=== PATIENT | male | born 1980 | race Two or more races ===

== ENCOUNTER → 2016-11-24 | Outpatient (REF) | payer BC ==
[2016-11-24 20:10] LABS: ALBUMIN 4.2 GM/DL (3.2-5.2); ALBUMIN/GLOBULIN RATIO 1.31 (1.00-1.93); ALKALINE PHOSPHATASE 55 U/L (45-117); ALT/SGPT 45 U/L (12-78); ANION GAP 9 MEQ/L (8-16); AST/SGOT 26 U/L (15-37); BILIRUBIN,TOTAL 0.4 MG/DL (0.2-1.0); BLOOD UREA NITROGEN 17 MG/DL (7-18); CALCIUM LEVEL 8.8 MG/DL (8.5-10.1); CARBON DIOXIDE LEVEL 31 MEQ/L (21-32); CHLORIDE LEVEL 102 MEQ/L (98-107); CREATININE FOR GFR 1.05 MG/DL (0.70-1.30); GLOMERULAR FILTRATION RATE > 60.0 (>60); GLUCOSE, FASTING 114 MG/DL (70-105); POTASSIUM SERUM 4.4 MEQ/L (3.5-5.1); SODIUM LEVEL 142 MEQ/L (136-145); TOTAL PROTEIN 7.4 GM/DL (6.4-8.2)
[2016-11-24 20:15] LABS: BASO % 0.3 % (0.0-1.0); EOS # 0.1 K/mm3 (0.0-0.50); EOS % 2.1 % (0.0-3.0); LARGE UNSTAINED CELL # 0.2 K/mm3 (0.0-0.4); LARGE UNSTAINED CELL % 3.3 % (0.0-4.0); LYMPH # 1.5 K/mm3 (1.5-4.5); LYMPH % 29.1 % (24.0-44.0); MEAN CORPUSCULAR HEMOGLOBIN 31.3 pg (27.0-33.0); MEAN CORPUSCULAR HGB CONC 32.8 g/dl (32.0-36.5); MEAN CORPUSCULAR VOLUME 95.3 fl (80.0-96.0); MONO # 0.3 K/mm3 (0.0-0.8); MONO % 6.4 % (0.0-5.0); NEUTROPHILS % 58.8 % (36.0-66.0); PLATELET COUNT, AUTOMATED 273 k/mm3 (150-450); RED CELL DISTRIBUTION WIDTH 11.9 % (11.5-14.5)
== END ==
LOC: M SFHCADAM 11:37
PROVIDERS: ATTEND Family Medicine
DX: I10 Essential (primary) hypertension (principal)

== ENCOUNTER → 2016-12-15 | Outpatient (REF) | payer BC | LOC: M SFHCADAM 12:14 | PROVIDERS: ATTEND Family Medicine | DX: I10 Essential (primary) hypertension (principal) ==

== ENCOUNTER → 2017-01-05 | Outpatient (REF) | payer BC | LOC: M SFHCADAM 11:35 | PROVIDERS: ATTEND Family Medicine | DX: R73.01 Impaired fasting glucose (principal) ==

== ENCOUNTER → 2017-09-28 | Outpatient (CLI) | payer BC | LOC: M RAD 09:27 | DX: N50.9 Disorder of male genital organs, unspecified (principal); N43.3 Hydrocele, unspecified | CPT/HCPCS: 76870 ==

== ENCOUNTER → 2017-11-14 | Outpatient (REF) | payer BC ==
[2017-11-14 13:14] LABS: BASO % 0.4 % (0.0-1.0); EOS # 0.1 10^3/uL (0.0-0.50); EOS % 1.3 % (0.0-3.0); HEMATOCRIT 48.4 % (42.0-52.0); HEMOGLOBIN 16.3 g/dl (14.0-18.0); IMMATURE GRANULOCYTE % 0.2 % (0-3.0); LYMPH # 1.5 10^3/uL (1.5-4.5); LYMPH % 27.5 % (24.0-44.0); MEAN CORPUSCULAR HEMOGLOBIN 31.7 pg (27.0-33.0); MEAN CORPUSCULAR HGB CONC 33.7 g/dl (32.0-36.5); MEAN CORPUSCULAR VOLUME 94.2 fl (80.0-96.0); MONO # 0.4 10^3/uL (0.0-0.8); MONO % 8.3 % (0.0-5.0); NEUTROPHILS # 3.3 10^3/uL (1.8-7.7); NEUTROPHILS % 62.3 % (36.0-66.0); PLATELET COUNT, AUTOMATED 310 10^3/uL (150-450); RED BLOOD COUNT 5.14 10^6/uL (4.30-6.10); RED CELL DISTRIBUTION WIDTH 12.1 % (11.5-14.5); WHITE BLOOD COUNT 5.3 10^3/uL (4.0-10.0)
[2017-11-14 13:43] LABS: ALBUMIN 4.4 GM/DL (3.2-5.2); ALBUMIN/GLOBULIN RATIO 1.33 (1.00-1.93); ALKALINE PHOSPHATASE 65 U/L (45-117); ALT/SGPT 47 U/L (12-78); ANION GAP 5 MEQ/L (8-16); AST/SGOT 29 U/L (7-37); BILIRUBIN,TOTAL 0.5 MG/DL (0.2-1.0); BLOOD UREA NITROGEN 15 MG/DL (7-18); CALCIUM LEVEL 9.6 MG/DL (8.5-10.1); CARBON DIOXIDE LEVEL 33 MEQ/L (21-32); CHLORIDE LEVEL 104 MEQ/L (98-107); CREATININE FOR GFR 1.11 MG/DL (0.70-1.30); GLOMERULAR FILTRATION RATE > 60.0 (>60); GLUCOSE, FASTING 120 MG/DL (70-100); POTASSIUM SERUM 4.8 MEQ/L (3.5-5.1); SODIUM LEVEL 142 MEQ/L (136-145); TOTAL PROTEIN 7.7 GM/DL (6.4-8.2)
[2017-11-14 14:08] LABS: ESTIMATED AVERAGE GLUCOSE 128 MG/DL (60-110); HEMOGLOBIN A1c 6.1 %
== END ==
LOC: M SFHCADAM 10:35
DX: K52.9 Noninfective gastroenteritis and colitis, unspecified (principal); I10 Essential (primary) hypertension; R73.01 Impaired fasting glucose
CPT/HCPCS: 80053

== ENCOUNTER → 2018-02-01 | Outpatient (CLI) | payer BC | LOC: M ADAMS 16:33 | DX: M25.521 Pain in right elbow (principal) | CPT/HCPCS: 73080 ==

== ENCOUNTER → 2018-02-15 | Outpatient (REF) | payer BC ==
[2018-02-15 20:20] LABS: APPEARANCE, BODY FLUID TURBID
[2018-02-15 20:21] LABS: CRYSTALS, BODY FLUID NONE SEEN (NONE SEEN); SOURCE, BODY FLUID CRYSTALS RT ELBOW
[2018-02-15 20:23] LABS: BF MONONUCLEAR CELL % 81.6 % (0-0); BF POLYMORPHONUCLEAR CELL % 18.4 % (0-0); RBC BODY FLUID 44 10^3/uL (<2); WBC BODY FLUID 234 /uL (0-10)
[2018-02-15 20:25] LABS: BF DIFF IF INDICATED? YES (NO)
== END ==
LOC: M SFHCADAM 19:03
DX: M70.21 Olecranon bursitis, right elbow (principal)
CPT/HCPCS: 89051

== ENCOUNTER → 2020-06-11 | Outpatient (CLI) | payer BC ==
--- NOTE | 2020-06-18 10:41 | REP ---
LEFT FOOT SERIES: 4-VIEWS HISTORY: Left foot pain. FINDINGS: Four views of the left foot demonstrate overall normal mineralization. No evidence of fracture or subluxation is seen. No erosive change or other evidence to suggest arthropathy. IMPRESSION: Negative radiographs of the left foot. NATALEE
== END ==
LOC: M ADAMS 08:29
PROVIDERS: ATTEND Physician Assistant
DX: M79.672 Pain in left foot (principal)

== ENCOUNTER 2020-10-19 12:36 | Emergency (ER) | payer OTHER, BC ==
[~2020-10-19] VITALS: Ht 193 cm; Wt 104.5 kg
[2020-10-19] MEDS ORDERED: SIMV20TA22 PO (13:04)
[2020-10-19] MEDS ORDERED: ATEN50TA2 PO (13:04)
[2020-10-19] MEDS ORDERED: AMPH1CAP16 PO (13:04)
[2020-10-19] MEDS ORDERED: LISI30TA4 PO (13:04)
--- OUTSIDE RECORDS SUMMARY | 2020-10-19 13:27 | CCD ---
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 Active 233421963 Problem Chronic gout without tophus, unspecified cause, unspecified site [id number].[id number] Active 103817413 Problem Essential hypertension I10 Active 15647046 Problem Adult ADHD F90.9 Active 367997675 Problem Attention deficit hyperactivity disorder (ADHD), unspecified ADHD type F90.9 Active 858970509 Problem Acute gout involving toe of right foot, unspecified cause M10.9 Active 612343657 ALLERGIES No Known Allergies ENCOUNTERS from 1979 to 2020-09-28 Encounter Location Date Provider Diagnosis [facility] [address] [place] [address] Sep, Swapna Daren-Tartell IMMUNIZATIONS No Information SOCIAL HISTORY Tobacco Use: Social History Observation Description Date Details (start date - stop date) Never Smoker Sex Assigned At : Social History Observation Description Sex Assigned At Unknown Education: Question Answer Notes Level of Education: Not Finished College Audit Question Answer Notes Total Score: 10 Interpretation: Simple Advice Sexual Hx: Question Answer Notes Had sex in the last 12 months (vaginal, oral, or anal)? Yes Have you ever had an STD? No with Women only Use protection? No Drug and Alcohol Question Answer Notes Total Score: 0 Interpretation: No problems reported Alcohol Screening: Question Answer Notes Did you have a drink containing alcohol in the past year? Ye s Points 8 Interpretation Positive How often did you have six or more drinks on one occas ion in the past year? Weekly (3 points) How many drinks did you have on a typica l day when you were drinking in the past year? 3 or 4 (1 point) How often did you have a drink containing alcohol in t he past year? Four or more times a week (4 points) BMI Care Goal Follow-Up Question Answer Notes Above Normal BMI Follow-Up Giving encouragement to exercise Tobacco Use: Question Answer Notes Are you a: never smoker REASON FOR REFERRAL No Information VITAL SIGNS No information MEDICATIONS Medication SIG (Take, Route, Frequency, Duration) Notes Start Da te End Date Status Colchicine 0.6 mg one tab orally every 12 hours prn pain for 5 d ay(s) Dec, Active May Have - medical majuana orally 3-4 times as needed Active Atenolol 50 MG 1 tablet Orally Once a day for 30 Days Active Adderall 20 MG 1 tablet Orally twice daily MDD:2 for 30 day(s) Sep, Active Simvastatin 20 MG 1 tablet in the evening Orally Once a day for 30 Da ys Active Lisinopril 30 MG 1 tab Orally once daily for 30 Days Active PROCEDURES No Information RESULTS No Results REASON FOR VISIT atenolol, lisinopril MEDICAL (GENERAL) HISTORY Type Description Date Medical History HTN Medical History hyperlipidemia Medical History gout Medical History ADHD Medical History chronic low back pain Medical History states dx with intermittent explosive di sorder Medical History testicular US shows R hydrocele (09/2017) Medical History last tetanus shot approx 2002 Surgical History back surgery 2011 Goals Section No Information Health Concerns No Information MEDICAL EQUIPMENT No Information MENTAL STATUS No Information FUNCTIONAL STATUS No Information ASSESSMENTS No Information PLAN OF TREATMENT Medication Medication Name Sig Start Date Stop Date Colchicine 0.6 mg one tab orally every 12 hours prn pain f or 5 day(s) Dec, Simvastatin 20 MG 1 tablet in the evening Orally Once a day for 30 Days Lisinopril 30 MG 1 tab Orally once daily for 30 Days Adderall 20 MG 1 tablet Orally twice daily MDD:2 for 30 day(s) Sep, Atenolol 50 MG 1 tablet Orally Once a day for 30 Days Insurance Providers Payer Name Payer Address Payer Phone Insured Name Patient Relati onship to Insured Coverage Start Date Coverage End Date [facility] [phone] [facility] [phone] [place] self
--- OUTSIDE RECORDS SUMMARY | 2020-10-19 13:28 | CCD ---
Author Author [facility] Organization [facility] Address Unknown Phone Unavailable Care Team Providers Care Affiliate Marketing Manager Name Role Phone WalterKaylee PA Unavailable Unavailable Walter, Kaylee Crawford PA Unavailable Unavailable Walter, Kaylee Moonn PA Unavailable Unavailable Walter, Kaylee Irenelyn PA Unavailable Unavailable Walter, Kaylee Yvette PA Unavailable Unavailable Walter, Kaylee Yvette PA Unavailable Unavailable Walter, Kaylee Yvette PA Unavailable Unavailable Walter, Kaylee Yvette PA Unavailable Unavailable Walter, Kaylee Yvette PA Unavailable Unavailable Walter, Kaylee Yvette PA Unavailable Unavailable Re-disclosure Warning The records that you are about to access may contain information from federally-assisted alcohol or drug abuse programs. If such information is present, then the following federally mandated warning applies: This information has been disclosed to you from records protected by federal confidentiality rules (42 CFR part 2). The federal rules prohibit you from making any further disclosure of this information unless further disclosure is expressly permitted by the written consent of the person to whom it pertains or as otherwise permitted by 42 CFR part 2. A general authorization for the release of medical or other information is NOT sufficient for this purpose. The Federal rules restrict any use of the information to criminally investigate or prosecute any alcohol or drug abuse patient.The records that you are about to access may contain highly sensitive health information, the redisclosure of which is protected by Article 27-F of the [place] State Public Health law. If you continue you may have access to information: Regarding HIV / AIDS; Provided by facilities licensed or operated by the [facility] of Mental Health; or Provided by the [facility] Office for People With Developmental Disabilities. If such information is present, then the following [facility] mandated warning applies: This information has been disclosed to you from confidential records which are protected by state law. State law prohibits you from making any further disclosure of this information without the specific written consent of the person to whom it pertains, or as otherwise permitted by law. Any unauthorized further disclosure in violation of state law may result in a fine or residential sentence or both. A general authorization for the release of medical or other information is NOT sufficient authorization for further disc losure. Family History Family Member Name Family Member Gender Family Member Status Date o f Status Description Data Source(s) Unknown Unknown Problem MEDENT ([facility]) Encounters Encounter Providers Location Date Indications Data Source(s ) Unknown [address] [facility] [address] 09/27/2020 12:00:00 AM EST [facility]1 ([facility]) Unknown [address] [facility] [address] 09/27/2020 12:00:00 AM EST [facility]CW1 ([facility]) Unknown [address] [facility] [address] 08/25/2020 12:00:00 AM EST eCW1 ([facility]) Unknown [address] [facility] [address] 07/27/2020 12:00:00 AM EST eCW1 ([facility]) [facility] [place] [address] [facility] [place] [address] 07/07/2020 12:00:00 AM EDT eCW1 ([facility]) Unknown [address] [facility] [address] 06/25/2020 12:00:00 AM EDT eCW1 ([facility]) Unknown [address] [facility] [address] 06/21/2020 12:00:00 AM EDT [facility] Outpatient Attender: Yvette voss 05/24/2020 09:45:00 AM EDT MEDENT ([facility]) Unknown [address] [facility] [place] [address] 04/08/2020 12:00:00 AM EDT eCW1 ([facility]) [facility] [place] [address] [facility] [place] [address] 03/01/2020 12:00:00 AM EDT eCW1 ([facility]) Unknown [address] [facility] [place] [address] 02/24/2020 12:00:00 AM EDT eCW1 ([facility]) [facility] [place] [address] [place] [address] [place] [address] 01/26/2020 12:00:00 AM EDT eCW1 ([facility]) [facility] [place] [address] [place] [address] [place] [address] 12/29/2019 12:00:00 AM EDT eCW1 ([facility]) [facility] [address] [place] [address] [place] [address] 11/25/2019 12:00:00 AM EDT eCW1 ([facility]) [address] [place] [address] 10/27/2019 12:00:00 AM EST eCW1 ([facility]) [address] [place] [address] 09/29/2019 12:00:00 AM EST eCW1 ([facility]) [address] [place] [address] 08/25/2019 12:00:00 AM EST eCW1 ([facility]) Medications Medication Brand Name Start Date Product Form Dose Route Admi nistrative Instructions Pharmacy Instructions Status Indications Reaction Description Data Source(s) 20 mg 09/27/2020 12:00:00 AM EST tablet 60 TAKE ONE TABLET BY MOUTH TWICE A DAY MAXIMUM DAILY DOSE = 2 TABLETS TAKE ONE TABLET BY MOUTH TWICE A DAY MAX IMUM DAILY DOSE = 2 TABLETS SOLD: 09/27/2020 [facility] 20 mg 09/27/2020 12:00:00 AM EST tablet 30 TAKE ONE TABLET BY MOUTH EVERY EVENING TAKE ONE TABLET BY MOUTH EVERY EVENING SOLD: 09/27/2020 [facility] 30 mg 09/27/2020 12:00:00 AM EST tablet 30 TAKE ONE TABLET BY MOUTH EVERY DAY TAKE ONE TABLET BY MOUTH EVERY DAY SOLD: 09/27/2020 [facility] Amphetamine aspartate 5 MG / Amphetamine Sulfate 5 MG / Dextroamphetamine saccharate 5 MG / Dextroamphetamine Sulfate 5 MG Oral Tablet [Adderall] Adderall 20 MG Adderall 20 MG 09/27/2020 12:00:00 AM EST 1.0 {tablet} active Adderall 20 MG eCW1 ([facility]) Atenolol 50 MG Oral Tablet ATENOLOL 09/27/2020 12:00:00 AM EST tablet 30 TAKE ONE TABLET BY MOUTH EVERY DAY TAKE ONE TABLET BY MOUTH EVERY DAY SOLD: 09/27/2020 [facility] Amphetamine aspartate 5 MG / Amphetamine Sulfate 5 MG / Dextroamphetamine saccharate 5 MG / Dextroamphetamine Sulfate 5 MG Oral Tablet [Adderall] Adderall 20 MG Adderall 20 MG 09/27/2020 12:00:00 AM EST 1.0 {tablet} active Adderall 20 MG eCW1 ([facility]) Amphetamine aspartate 5 MG / Amphetamine Sulfate 5 MG / Dextroamphetamine saccharate 5 MG / Dextroamphetamine Sulfate 5 MG Oral Tablet [Adderall] Adderall 20 MG Adderall 20 MG 08/26/2020 12:00:00 AM EST 1.0 {tablet} active Adderall 20 MG eCW1 ([facility]) 20 mg 08/26/2020 12:00:00 AM EST tablet 60 TAKE ONE TABLET BY MOUTH TWICE A DAY MAXIMUM DAILY DOSE = 2 TAKE ONE TABLET BY MOUTH TWICE A DAY MAX IMUM DAILY DOSE = 2 SOLD: 08/27/2020 [facility] 20 mg 07/28/2020 12:00:00 AM EST tablet 60 TAKE ONE TABLET BY MOUTH TWICE A DAY MAXIMUM DAILY DOSE = 2 TABLETS TAKE ONE TABLET BY MOUTH TWICE A DAY MAX IMUM DAILY DOSE = 2 TABLETS SOLD: 07/28/2020 [facility] Amphetamine aspartate 5 MG / Amphetamine Sulfate 5 MG / Dextroamphetamine saccharate 5 MG / Dextroamphetamine Sulfate 5 MG Oral Tablet [Adderall] Adderall 20 MG Adderall 20 MG 07/28/2020 12:00:00 AM EST 1.0 {tablet} active Adderall 20 MG eCW1 ([facility]) 20 mg 06/26/2020 12:00:00 AM EDT tablet 60 TAKE ONE TABLET BY MOUTH TWICE A DAY, MAXIMUM DAILY DOSE = 2 TABLETS TAKE ONE TABLET BY MOUTH TWICE A DAY, MAXIMUM DAILY DOSE = 2 TABLETS SOLD: 06/26/2020 [facility] Amphetamine aspartate 5 MG / Amphetamine Sulfate 5 MG / Dextroamphetamine saccharate 5 MG / Dextroamphetamine Sulfate 5 MG Oral Tablet [Adderall] Adderall 20 MG Adderall 20 MG 06/25/2020 12:00:00 AM EDT 1.0 {tablet} active Adderall 20 MG eCW1 ([facility]) Atenolol 50 MG Oral Tablet ATENOLOL 06/18/2020 12:00:00 AM EDT tablet 30 TAKE ONE TABLET BY MOUTH EVERY DAY TAKE ONE TABLET BY MOUTH EVERY DAY SOLD: 08/27/2020 [facility] 20 mg 06/18/2020 12:00:00 AM EDT tablet 30 TAKE ONE TABLET BY MOUTH EVERY EVENING TAKE ONE TABLET BY MOUTH EVERY EVENING SOLD: 08/27/2020 [facility] Atenolol 50 MG Oral Tablet ATENOLOL 06/18/2020 12:00:00 AM EDT tablet 30 TAKE ONE TABLET BY MOUTH EVERY DAY TAKE ONE TABLET BY MOUTH EVERY DAY SOLD: 06/26/2020 [facility] 30 mg 06/18/2020 12:00:00 AM EDT tablet 30 TAKE ONE TABLET BY MOUTH EVERY DAY TAKE ONE TABLET BY MOUTH EVERY DAY SOLD: 06/26/2020 [facility] 30 mg 06/18/2020 12:00:00 AM EDT tablet 30 TAKE ONE TABLET BY MOUTH EVERY DAY TAKE ONE TABLET BY MOUTH EVERY DAY SOLD: 08/27/2020 [facility] 20 mg 06/18/2020 12:00:00 AM EDT tablet 30 TAKE ONE TABLET BY MOUTH EVERY EVENING TAKE ONE TABLET BY MOUTH EVERY EVENING SOLD: 06/26/2020 [facility] 20 mg 05/27/2020 12:00:00 AM EDT tablet 60 TAKE ONE TABLET BY MOUTH TWICE A DAY MAXIMUM DAILY DOSE = 2 TAKE ONE TABLET BY MOUTH TWICE A DAY MAX IMUM DAILY DOSE = 2 SOLD: 05/28/2020 [facility] 20 mg 05/24/2020 12:00:00 AM EDT tablet 15 TAKE ONE TABLET BY MOUTH THREE TIMES A DAY FOR 5 DAYS TAKE ONE TABLET BY MOUTH THREE TIMES A DAY FOR 5 DAYS SOLD: 05/24/2020 [facility] Prednisone 20 MG Oral Tablet Prednisone 05/24/2020 12:00:00 AM EDT active MEDENT ([facility]) 20 mg 04/26/2020 12:00:00 AM EDT tablet 60 TAKE ONE TABLET BY MOUTH TWO TIMES A DAY MAXIMUM DAILY DOSE = 2 TABLETS TAKE ONE TABLET BY MOUTH TWO TIMES A DAY MAXIMUM DAILY DOSE = 2 TABLETS SOLD: 04/26/2020 [facility] 30 mg 04/22/2020 12:00:00 AM EDT tablet 30 TAKE ONE TABLET BY MOUTH EVERY DAY TAKE ONE TABLET BY MOUTH EVERY DAY SOLD: 04/26/2020 [facility] 30 mg 04/22/2020 12:00:00 AM EDT tablet 30 TAKE ONE TABLET BY MOUTH EVERY DAY TAKE ONE TABLET BY MOUTH EVERY DAY SOLD: 05/24/2020 [facility] 20 mg 04/22/2020 12:00:00 AM EDT tablet 30 TAKE ONE TABLET BY MOUTH IN THE EVENING TAKE ONE TABLET BY MOUTH IN THE EVENING SOLD: 05/24/2020 [facility] Atenolol 50 MG Oral Tablet ATENOLOL 04/22/2020 12:00:00 AM EDT tablet 30 TAKE ONE TABLET BY MOUTH EVERY DAY TAKE ONE TABLET BY MOUTH EVERY DAY SOLD: 05/24/2020 [facility] 20 mg 04/22/2020 12:00:00 AM EDT tablet 30 TAKE ONE TABLET BY MOUTH IN THE EVENING TAKE ONE TABLET BY MOUTH IN THE EVENING SOLD: 04/26/2020 [facility] 50 mg 04/22/2020 12:00:00 AM EDT tablet 30 TAKE ONE TABLET BY MOUTH EVERY DAY TAKE ONE TABLET BY MOUTH EVERY DAY SOLD: 04/26/2020 [facility] 20 mg 03/27/2020 12:00:00 AM EDT tablet 60 TAKE ONE TABLET BY MOUTH TWICE A DAY MAXIMUM DAILY DOSE = 2 CAPSULES TAKE ONE TABLET BY MOUTH TWICE A DAY MAX IMUM DAILY DOSE = 2 CAPSULES SOLD: 03/27/2020 [facility] Amphetamine aspartate 5 MG / Amphetamine Sulfate 5 MG / Dextroamphetamine saccharate 5 MG / Dextroamphetamine Sulfate 5 MG Oral Tablet [Adderall] Adderall 20 MG Adderall 20 MG 03/26/2020 12:00:00 AM EDT 1.0 {tablet} active Adderall 20 MG eCW1 ([facility]) Amphetamine aspartate 5 MG / Amphetamine Sulfate 5 MG / Dextroamphetamine saccharate 5 MG / Dextroamphetamine Sulfate 5 MG Oral Tablet [Adderall] Adderall 20 MG Adderall 20 MG 03/26/2020 12:00:00 AM EDT 1.0 {tablet} active Adderall 20 MG eCW1 ([facility]) 20 mg 02/25/2020 12:00:00 AM EDT tablet 60 TAKE ONE TABLET BY MOUTH TWICE A DAY MAXIMUM DAILY DOSE = 2 TAKE ONE TABLET BY MOUTH TWICE A DAY MAX IMUM DAILY DOSE = 2 SOLD: 02/26/2020 [facility] Amphetamine aspartate 5 MG / Amphetamine Sulfate 5 MG / Dextroamphetamine saccharate 5 MG / Dextroamphetamine Sulfate 5 MG Oral Tablet [Adderall] Adderall 20 MG Adderall 20 MG 02/25/2020 12:00:00 AM EDT 1.0 {tablet} active Adderall 20 MG eCW1 ([facility]) 50 mg 02/23/2020 12:00:00 AM EDT tablet 30 TAKE ONE TABLET BY MOUTH EVERY DAY TAKE ONE TABLET BY MOUTH EVERY DAY SOLD: 03/27/2020 [facility] 30 mg 02/23/2020 12:00:00 AM EDT tablet 30 TAKE ONE TABLET BY MOUTH EVERY DAY TAKE ONE TABLET BY MOUTH EVERY DAY SOLD: 03/27/2020 [facility] 50 mg 02/23/2020 12:00:00 AM EDT tablet 30 TAKE ONE TABLET BY MOUTH EVERY DAY TAKE ONE TABLET BY MOUTH EVERY DAY SOLD: 02/26/2020 [facility] 20 mg 02/23/2020 12:00:00 AM EDT tablet 30 TAKE ONE TABLET BY MOUTH EVERY EVENING TAKE ONE TABLET BY MOUTH EVERY EVENING SOLD: 02/26/2020 [facility] 20 mg 02/23/2020 12:00:00 AM EDT tablet 30 TAKE ONE TABLET BY MOUTH EVERY EVENING TAKE ONE TABLET BY MOUTH EVERY EVENING SOLD: 03/27/2020 [facility] 30 mg 02/23/2020 12:00:00 AM EDT tablet 30 TAKE ONE TABLET BY MOUTH EVERY DAY TAKE ONE TABLET BY MOUTH EVERY DAY SOLD: 02/26/2020 [facility] 20 mg 01/27/2020 12:00:00 AM EDT tablet 60 TAKE ONE TABLET BY MOUTH TWICE A DAY, MAXIMUM DAILY DOSE = 2 TABLETS TAKE ONE TABLET BY MOUTH TWICE A DAY, MAXIMUM DAILY DOSE = 2 TABLETS SOLD: 01/27/2020 [facility] Amphetamine aspartate 5 MG / Amphetamine Sulfate 5 MG / Dextroamphetamine saccharate 5 MG / Dextroamphetamine Sulfate 5 MG Oral Tablet [Adderall] Adderall 20 MG Adderall 20 MG 01/26/2020 12:00:00 AM EDT a ctive 1 tablet eCW1 ([facility]) 20 mg 12/29/2019 12:00:00 AM EDT tablet 60 TAKE ONE TABLET BY MOUTH TWICE A DAY, MAXIMUM DAILY DOSE = 2 TABLETS TAKE ONE TABLET BY MOUTH TWICE A DAY, MAXIMUM DAILY DOSE = 2 TABLETS SOLD: 12/29/2019 [facility] Amphetamine aspartate 5 MG / Amphetamine Sulfate 5 MG / Dextroamphetamine saccharate 5 MG / Dextroamphetamine Sulfate 5 MG Oral Tablet [Adderall] Adderall 20 MG Adderall 20 MG 12/29/2019 12:00:00 AM EDT a ctive 1 tablet eCW1 ([facility]) 20 mg 12/22/2019 12:00:00 AM EDT tablet 30 TAKE ONE TABLET BY MOUTH IN THE EVENING TAKE ONE TABLET BY MOUTH IN THE EVENING SOLD: 12/29/2019 [facility] 20 mg 12/22/2019 12:00:00 AM EDT tablet 30 TAKE ONE TABLET BY MOUTH IN THE EVENING TAKE ONE TABLET BY MOUTH IN THE EVENING SOLD: 01/27/2020 [facility] 30 mg 12/22/2019 12:00:00 AM EDT tablet 30 TAKE ONE TABLET BY MOUTH EVERY DAY TAKE ONE TABLET BY MOUTH EVERY DAY SOLD: 12/29/2019 [facility] 50 mg 12/22/2019 12:00:00 AM EDT tablet 30 TAKE ONE TABLET BY MOUTH EVERY DAY TAKE ONE TABLET BY MOUTH EVERY DAY SOLD: 12/29/2019 [facility] 30 mg 12/22/2019 12:00:00 AM EDT tablet 30 TAKE ONE TABLET BY MOUTH EVERY DAY TAKE ONE TABLET BY MOUTH EVERY DAY SOLD: 01/27/2020 [facility] 50 mg 12/22/2019 12:00:00 AM EDT tablet 30 TAKE ONE TABLET BY MOUTH EVERY DAY TAKE ONE TABLET BY MOUTH EVERY DAY SOLD: 01/27/2020 [facility] Amphetamine aspartate 5 MG / Amphetamine Sulfate 5 MG / Dextroamphetamine saccharate 5 MG / Dextroamphetamine Sulfate 5 MG Oral Tablet [Adderall] Adderall 20 MG Adderall 20 MG 11/25/2019 12:00:00 AM EDT a ctive 1 tablet eCW1 ([facility]) 20 mg 11/25/2019 12:00:00 AM EDT tablet 60 TAKE ONE TABLET BY MOUTH TWICE A DAY MAXIMUM DAILY DOSE = 2 TABLETS TAKE ONE TABLET BY MOUTH TWICE A DAY MAX IMUM DAILY DOSE = 2 TABLETS SOLD: 11/25/2019 [facility] 30 mg 10/27/2019 12:00:00 AM EST tablet 30 TAKE ONE TABLET BY MOUTH EVERY DAY TAKE ONE TABLET BY MOUTH EVERY DAY SOLD: 10/27/2019 [facility] 50 mg 10/27/2019 12:00:00 AM EST tablet 30 TAKE ONE TABLET BY MOUTH EVERY DAY TAKE ONE TABLET BY MOUTH EVERY DAY SOLD: 11/25/2019 [facility] Amphetamine aspartate 5 MG / Amphetamine Sulfate 5 MG / Dextroamphetamine saccharate 5 MG / Dextroamphetamine Sulfate 5 MG Oral Tablet [Adderall] Adderall 20 MG Adderall 20 MG 10/27/2019 12:00:00 AM EST a ctive 1 tablet eCW1 ([facility]) 20 mg 10/27/2019 12:00:00 AM EST tablet 60 TAKE ONE TABLET BY MOUTH TWICE A DAY MAXIMUM DAILY DOSE = 2 TABLETS TAKE ONE TABLET BY MOUTH TWICE A DAY MAX IMUM DAILY DOSE = 2 TABLETS SOLD: 10/27/2019 [facility] 30 mg 10/27/2019 12:00:00 AM EST tablet 30 TAKE ONE TABLET BY MOUTH EVERY DAY TAKE ONE TABLET BY MOUTH EVERY DAY SOLD: 11/25/2019 [facility] 20 mg 10/27/2019 12:00:00 AM EST tablet 30 TAKE ONE TABLET BY MOUTH EVERY EVENING TAKE ONE TABLET BY MOUTH EVERY EVENING SOLD: 10/27/2019 [facility] 20 mg 10/27/2019 12:00:00 AM EST tablet 30 TAKE ONE TABLET BY MOUTH EVERY EVENING TAKE ONE TABLET BY MOUTH EVERY EVENING SOLD: 11/25/2019 [facility] 50 mg 10/27/2019 12:00:00 AM EST tablet 30 TAKE ONE TABLET BY MOUTH EVERY DAY TAKE ONE TABLET BY MOUTH EVERY DAY SOLD: 10/27/2019 [facility] 20 mg 09/29/2019 12:00:00 AM EST tablet 60 TAKE ONE TABLET BY MOUTH TWICE A DAY MAXIMUM DAILY DOSE = 2 TABLETS TAKE ONE TABLET BY MOUTH TWICE A DAY MAX IMUM DAILY DOSE = 2 TABLETS SOLD: 09/30/2019 [facility] Amphetamine aspartate 5 MG / Amphetamine Sulfate 5 MG / Dextroamphetamine saccharate 5 MG / Dextroamphetamine Sulfate 5 MG Oral Tablet [Adderall] Adderall 20 MG Adderall 20 MG 09/29/2019 12:00:00 AM EST a ctive 1 tablet eCW1 ([facility]) 50 mg 08/25/2019 12:00:00 AM EST tablet 30 TAKE ONE TABLET BY MOUTH EVERY DAY TAKE ONE TABLET BY MOUTH EVERY DAY SOLD: 08/25/2019 [facility] 30 mg 08/25/2019 12:00:00 AM EST tablet 30 TAKE ONE TABLET BY MOUTH EVERY DAY TAKE ONE TABLET BY MOUTH EVERY DAY SOLD: 09/30/2019 [facility] 20 mg 08/25/2019 12:00:00 AM EST tablet 60 TAKE ONE TABLET BY MOUTH TWICE A DAY MAXIMUM DAILY DOSE = 2 TAKE ONE TABLET BY MOUTH TWICE A DAY MAX IMUM DAILY DOSE = 2 SOLD: 08/25/2019 [facility] 50 mg 08/25/2019 12:00:00 AM EST tablet 30 TAKE ONE TABLET BY MOUTH EVERY DAY TAKE ONE TABLET BY MOUTH EVERY DAY SOLD: 09/30/2019 [facility] 30 mg 08/25/2019 12:00:00 AM EST tablet 30 TAKE ONE TABLET BY MOUTH EVERY DAY TAKE ONE TABLET BY MOUTH EVERY DAY SOLD: 08/25/2019 [facility] 20 mg 08/25/2019 12:00:00 AM EST tablet 30 TAKE ONE TABLET BY MOUTH EVERY EVENING TAKE ONE TABLET BY MOUTH EVERY EVENING SOLD: 09/30/2019 [facility] Amphetamine aspartate 5 MG / Amphetamine Sulfate 5 MG / Dextroamphetamine saccharate 5 MG / Dextroamphetamine Sulfate 5 MG Oral Tablet [Adderall] Adderall 20 MG Adderall 20 MG 08/25/2019 12:00:00 AM EST a ctive 1 tablet eCW1 ([facility]) 20 mg 08/25/2019 12:00:00 AM EST tablet 30 TAKE ONE TABLET BY MOUTH EVERY EVENING TAKE ONE TABLET BY MOUTH EVERY EVENING SOLD: 08/25/2019 [facility] Insurance Providers Payer name Policy type / Coverage type Policy ID Covered alliance party ID Covered alliance party's relationship to bran Policy Bran Plan Information [facility] 101/600 [id number] SP [id number] ANSI-Commercial [id number] ANSI-Commercial [id number] ANSI-Commercial [id number] ANSI-Commercial [id number] ANSI-Commercial [id number] ANSI-Commercial [id number] ANSI-Commercial [id number] ANSI-Commercial [id number] ANSI-Commercial [id number] ANSI-Commercial [id number] ANSI-Commercial [id number] ANSI-Commercial [id number] ANSI-Commercial [id number] [employer] Commercial [id number] ANSI-Commercial [id number] ANSI-Commercial [id number] ANSI-Commercial [id number] ANSI-Commercial [id number] ANSI-Commercial [id number] ANSI-Commercial [id number] ANSI-Commercial [id number] [employer] B [id number] S [id number] [employer] [place] 101/600 [id number] SP [id number] [employer] [place] 101600 [id number] SP [id number] Social History Code Duration Value Status Description Data Source(s ) Smoking 05/24/2020 12:00:00 AM EDT Patient has never smoked co mpleted Patient has never smoked [facility] ([facility]) Vital Signs ID Date Data Source UNK Name Value Range Interpretation Code Description Data Source(s) Body mass index (BMI) [Ratio] 28.1 kg/m2 28.1 k g/m2 [facility] ([facility]) Body height 75 [in_i] 75 [in_i] [facility] ([facility]) 6'3" Body weight 225.00 [lb_av] 225.00 [lb_av] [facility] T ([facility]) Body temperature 98.2 [degF] 98.2 [degF] [facility] ([facility]) Oxygen saturation in Arterial blood by Pulse oximetry 96 % 96 % [facility] Respiratory rate 18 /min 18 /min [facility] Heart rate 90 /min 90 /min [facility] ([facility]) Diastolic blood pressure 96 mm[Hg] 96 mm[Hg] [facility] ([facility]) Systolic blood pressure 133 mm[Hg] 133 mm[Hg] M [facility] ([facility]) Patient Treatment Plan of Care Planned Activity Planned Date Details Description Data Source (s) Amphetamine aspartate 5 MG / Amphetamine Sulfate 5 MG / Dextroamphetamine saccharate 5 MG / Dextroamphetamine Sulfate 5 MG Oral Tablet [Adderall] 09/27/2020 12:00:00 AM [place] [id number] ([facility]) Amphetamine aspartate 5 MG / Amphetamine Sulfate 5 MG / Dextroamphetamine saccharate 5 MG / Dextroamphetamine Sulfate 5 MG Oral Tablet [Adderall] 09/27/2020 12:00:00 AM EST eCW1 ([facility]) Amphetamine aspartate 5 MG / Amphetamine Sulfate 5 MG / Dextroamphetamine saccharate 5 MG / Dextroamphetamine Sulfate 5 MG Oral Tablet [Adderall] 08/26/2020 12:00:00 AM EST eCW1 ([facility]) Amphetamine aspartate 5 MG / Amphetamine Sulfate 5 MG / Dextroamphetamine saccharate 5 MG / Dextroamphetamine Sulfate 5 MG Oral Tablet [Adderall] 07/28/2020 12:00:00 AM EST eCW1 ([facility]) Amphetamine aspartate 5 MG / Amphetamine Sulfate 5 MG / Dextroamphetamine saccharate 5 MG / Dextroamphetamine Sulfate 5 MG Oral Tablet [Adderall] 06/25/2020 12:00:00 AM EDT eCW1 ([facility]) Amphetamine aspartate 5 MG / Amphetamine Sulfate 5 MG / Dextroamphetamine saccharate 5 MG / Dextroamphetamine Sulfate 5 MG Oral Tablet [Adderall] 03/26/2020 12:00:00 AM EDT eCW1 ([facility]) Amphetamine aspartate 5 MG / Amphetamine Sulfate 5 MG / Dextroamphetamine saccharate 5 MG / Dextroamphetamine Sulfate 5 MG Oral Tablet [Adderall] 03/26/2020 12:00:00 AM EDT eCW1 ([facility]) Amphetamine aspartate 5 MG / Amphetamine Sulfate 5 MG / Dextroamphetamine saccharate 5 MG / Dextroamphetamine Sulfate 5 MG Oral Tablet [Adderall] 02/25/2020 12:00:00 AM EDT eCW1 ([facility]) Amphetamine aspartate 5 MG / Amphetamine Sulfate 5 MG / Dextroamphetamine saccharate 5 MG / Dextroamphetamine Sulfate 5 MG Oral Tablet [Adderall] 01/26/2020 12:00:00 AM EDT eCW1 ([facility]) Amphetamine aspartate 5 MG / Amphetamine Sulfate 5 MG / Dextroamphetamine saccharate 5 MG / Dextroamphetamine Sulfate 5 MG Oral Tablet [Adderall] 12/29/2019 12:00:00 AM EDT eCW1 ([facility]) Amphetamine aspartate 5 MG / Amphetamine Sulfate 5 MG / Dextroamphetamine saccharate 5 MG / Dextroamphetamine Sulfate 5 MG Oral Tablet [Adderall] 11/25/2019 12:00:00 AM EDT [email or web address] ([facility]) Amphetamine aspartate 5 MG / Amphetamine Sulfate 5 MG / Dextroamphetamine saccharate 5 MG / Dextroamphetamine Sulfate 5 MG Oral Tablet [Adderall] 10/27/2019 12:00:00 AM EST [email or web address] ([facility]) Amphetamine aspartate 5 MG / Amphetamine Sulfate 5 MG / Dextroamphetamine saccharate 5 MG / Dextroamphetamine Sulfate 5 MG Oral Tablet [Adderall] 09/29/2019 12:00:00 AM EST [email or web address] ([facility]) Amphetamine aspartate 5 MG / Amphetamine Sulfate 5 MG / Dextroamphetamine saccharate 5 MG / Dextroamphetamine Sulfate 5 MG Oral Tablet [Adderall] 08/25/2019 12:00:00 AM EST [id number] ([facility])
--- OUTSIDE RECORDS SUMMARY | 2020-10-19 13:28 | CCD ---
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 Active 506971719 Problem Chronic gout without tophus, unspecified cause, unspecified site M1A.9XX0 Active 195593203 Problem Essential hypertension I10 Active 57600359 Problem Adult ADHD F90.9 Active 545779778 Problem Attention deficit hyperactivity disorder (ADHD), unspecified ADHD type F90.9 Active 417900992 Problem Acute gout involving toe of right foot, unspecified cause M10.9 Active 552491008 ALLERGIES No Known Allergies ENCOUNTERS from 1979 to 2020-09-27 Encounter Location Date Provider Diagnosis [facility] [address] [place] [address] Sep, Swapna Daren-Tartell IMMUNIZATIONS No Information SOCIAL [...] Information RESULTS No Results REASON FOR VISIT multi adderal MEDICAL (GENERAL) HISTORY Type Description Date Medical History HTN Medical History hyperlipidemia Medical History gout Medical History ADHD Medical History chronic low back pain Medical History states dx with intermittent explosive di sorder Medical History testicular US shows R hydrocele (09/2017) Medical History last tetanus shot approx 2001 Surgical History back surgery 2011 [place] [...] Insured Coverage Start Date Coverage End Date [facility] [address] [facility] [phone] [place] self
--- OUTSIDE RECORDS SUMMARY | 2020-10-19 13:28 | CCD ---
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 Active 001589263 Problem Chronic gout without tophus, unspecified cause, unspecified site M1A.9XX0 Active 432893026 Problem Essential hypertension I10 Active 88345607 Problem Adult ADHD F90.9 Active 048327998 Problem Attention deficit hyperactivity disorder (ADHD), unspecified ADHD type F90.9 Active 887064054 Problem Acute gout involving toe of right foot, unspecified cause M10.9 Active 041504237 ALLERGIES No Known Allergies ENCOUNTERS from 1979 to 2020-08-27 Encounter Location Date Provider Diagnosis [facility] [id number] [place] [address] Aug, Swapna Daren-Tartell IMMUNIZATIONS No Information SOCIAL HISTORY [...] Notes Start Da te End Date Status Atenolol 50 MG 1 tablet Orally Once a day for 30 Days Active May Have - medical majuana orally 3-4 times as needed Active Simvastatin 20 MG 1 tablet in the evening Orally Once a day for 30 Da ys Active Lisinopril 30 MG 1 tab Orally once daily for 30 Days Active Colchicine 0.6 mg one tab orally every 12 hours prn pain for 5 d ay(s) Dec, Active Adderall 20 MG 1 tablet Orally twice daily MDD:2 for 30 day(s) Aug, Active PROCEDURES No Information RESULTS No Results REASON FOR VISIT multi/adderal MEDICAL (GENERAL) HISTORY Type Description Date Medical [...] Medication Name Sig Start Date Stop Date Atenolol 50 MG 1 tablet Orally Once a day for 30 Days Colchicine 0.6 mg one tab orally every 12 hours prn pain f or 5 day(s) Dec, Adderall 20 MG 1 tablet Orally twice daily MDD:2 for 30 day(s) Aug, Lisinopril 30 MG 1 tab Orally once daily for 30 Days Simvastatin 20 MG 1 tablet in the evening Orally Once a day for 30 Days Insurance Providers Payer Name Payer Address Payer Phone Insured Name Patient Relati onship to Insured Coverage Start Date Coverage End Date [facility] [address] [facility] [phone] [place] self
--- OUTSIDE RECORDS SUMMARY | 2020-10-19 13:28 | CCD ---
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 Active 954647964 Problem Chronic gout without tophus, unspecified cause, unspecified site M1A.9XX0 Active 553222075 Problem Essential hypertension I10 Active 44909845 Problem Adult ADHD F90.9 Active 522628675 Problem Attention deficit hyperactivity disorder (ADHD), unspecified ADHD type F90.9 Active 463541874 Problem Acute gout involving toe of right foot, unspecified cause M10.9 Active 849464560 ALLERGIES No Known Allergies ENCOUNTERS from 1979 to 2020-07-29 Encounter Location Date Provider Diagnosis [facility] [address] [place] [address] Jul, Swapna Daren-Tartell IMMUNIZATIONS No Information SOCIAL HISTORY [...] MEDICATIONS Medication SIG (Take, Route, Frequency, Duration) Start Date En d Date Status Simvastatin 20 MG 1 tablet in the evening Orally Once a day for 30 Days Active May Have - medical majuana orally 3-4 times as needed Active Adderall 20 MG 1 tablet Orally twice daily MDD:2 for 30 day(s) Jul, Active Atenolol 50 MG 1 tablet Orally Once a day for 30 Days Active Colchicine 0.6 mg one tab orally every 12 hours prn pain f or 5 day(s) Dec, Active Lisinopril 30 MG 1 tab Orally once daily for 30 Days Active PROCEDURES No Information RESULTS No Results REASON FOR VISIT at,sim,ad,lis MEDICAL (GENERAL) HISTORY Type Description Date Medical [...] Medication Name Sig Start Date Stop Date Simvastatin 20 MG 1 tablet in the evening Orally Once a day for 30 Days Colchicine 0.6 mg one tab orally every 12 hours prn pain f or 5 day(s) Dec, Lisinopril 30 MG 1 tab Orally once daily for 30 Days Atenolol 50 MG 1 tablet Orally Once a day for 30 Days Adderall 20 MG 1 tablet Orally twice daily MDD:2 for 30 day(s) Jul, Insurance Providers Payer Name Payer Address Payer Phone Insured Name Patient Relati onship to Insured Coverage Start Date Coverage End Date [facility] [address] [facility] [phone] [place] self
[2020-10-19] MEDS ORDERED: MORPHINE 4 MG/ML 1ML VIAL/SYRINGE (J2270) IV ONE ×2 (13:30→17:30)
[2020-10-19 17:20] VITALS: BP 139/103
[2020-10-19] MEDS ORDERED: LIDO5DIS41 TD (17:53)
[2020-10-19] MEDS ORDERED: HYDR-3713 PO (17:53)
--- NOTE | 2020-10-20 08:10 | REP ---
INDICATION: injury/dec sens and weakness on right. Repeat dictation. Preliminary report is provided at the time of the exam by lizzie MAST. COMPARISON: None. TECHNIQUE: Sagittal and axial T1 and T2-weighted scans are acquired in the usual fashion with and without fat saturation. Sequences include spin echo, turbo spin-echo, and STIR imaging sequences. FINDINGS: There is some motion on sharpness. Lumbar vertebral body heights are preserved. Alignment is normal. There is no evidence of spondylolysis or spondylolisthesis. At L2-3, there is degenerative disc disease with disc narrowing and desiccation. There are reactive marrow changes on either side of the L2-3 disc. There is a broad-based diffuse disc protrusion with evidence of annulus tear. This com produces mild thecal sac compression and mild central canal stenosis. There is also mild bilateral neural foraminal narrowing from foraminal disc bulging. The L1-2, L3-4, L4-5, and L5-S1 disc levels are unremarkable. There is minimal facet hypertrophy at L5-S1. IMPRESSION: Diffuse disc protrusion with mild thecal sac compression and mild bilateral foraminal narrowing at L2-3. <Electronically signed by Fam Holland > 10/20/20 [id number]
--- NOTE | 2020-10-20 10:44 | ED PDOC ---
Post-Departure Follow-Up mri ls spine faxed to dr jenkins for fu Juan Carlos Serrano MD Oct 20, 2020 10:44
== END 2020-10-19 18:13 | disposition home or self-care (01) ==
LOC: M ED 12:36 → EDBD 12:36 → M ED 18:13
DX: M51.26 Other intervertebral disc displacement, lumbar region (principal); Z79.899 Other long term (current) drug therapy
CPT/HCPCS: 72148; 96374; 96376; 99284; J2270

== ENCOUNTER 2022-12-01 03:42 | Day surgery (SDC) | payer BC, OTHER ==
[~2022-12-01] VITALS: Ht 193 cm; Wt 104.5 kg
[~2022-12-01 03:42] MED LIST: AMPH1CAP16 PO; ATEN50TA2 PO; HYDR-3713 PO; LIDO5DIS41 TD; LISI30TA4 PO; SIMV20TA22 PO
[2022-12-01] MEDS ORDERED: ONDANSETRON 4MG 2ML VIAL IV ONE (04:00)
[2022-12-01] MEDS ORDERED: KETOROLAC 30 MG/ML 1ML VIAL IV ONE (04:00)
[2022-12-01] MEDS ORDERED: NS 1,000 ML IV SCH (04:00)
[2022-12-01 04:17] LABS: BASO # 0.1 10^3/uL (0.0-0.2); BASO % 0.3 % (0.0-1.0); EOS # 0.2 10^3/uL (0.0-0.5); EOS % 0.9 % (0.0-3.0); HEMATOCRIT 49.9 % (42.0-52.0); HEMOGLOBIN 16.3 g/dl (13.5-17.5); LYMPH # 2.4 10^3/uL (1.5-5.0); LYMPH % 14.7 % (24.0-44.0); MEAN CORPUSCULAR HGB CONC 32.7 g/dl (32.0-36.5); MEAN CORPUSCULAR VOLUME 91.9 fl (80.0-96.0); MONO % 9.7 % (2.0-8.0); NEUTROPHILS # 11.9 10^3/uL (1.5-8.5); NEUTROPHILS % 74.2 % (36.0-66.0); PLATELET COUNT, AUTOMATED 284 10^3/uL (150-450); RED BLOOD COUNT 5.43 10^6/uL (4.30-6.10)
[2022-12-01] MEDS ORDERED: ACETAMINOPHEN TAB 650MG DOSE (2X325MG) PO ONE (05:05)
[2022-12-01 05:12] LABS: MONO # 1.6 10^3/uL (0.0-0.8)
[2022-12-01] MEDS ORDERED: MORPHINE 4 MG/ML 1ML VIAL IV ONE (05:35)
[2022-12-01] MEDS ORDERED: PIPERACILLIN/TAZOBACTAM SOD 4.5 GM in D5W MINI-BAG PLUS 50 ML IV ONE (05:50)
[2022-12-01] MEDS ORDERED: NS 1,000 ML IV ONE (05:50)
[2022-12-01 06:05] LABS: LIPASE 28 U/L (12-53)
[2022-12-01 06:07] LABS: ALBUMIN 3.7 G/DL (3.2-5.2); ALKALINE PHOSPHATASE 62 U/L (46-116); ALT/SGPT 32 U/L (7.0-40); AST/SGOT 19 U/L (<34); BILIRUBIN,DIRECT 0.1 MG/DL (<0.4); BILIRUBIN,TOTAL 0.4 MG/DL (0.3-1.2); BLOOD UREA NITROGEN 19 MG/DL (9-23); CARBON DIOXIDE LEVEL 26 MMOL/L (20-31); CHLORIDE LEVEL 106 MMOL/L (98-107); CREATININE FOR GFR 0.87 MG/DL (0.70-1.30); GLOMERULAR FILTRATION RATE > 60.0 (>60); GLUCOSE, FASTING 158 MG/DL (60-100); POTASSIUM SERUM 4.6 MMOL/L (3.5-5.1); SODIUM LEVEL 139 MMOL/L (136-145); TOTAL PROTEIN 6.5 G/DL (5.7-8.2)
[2022-12-01] MEDS ORDERED: MIDAZOLAM INJ 2MG/2ML VIAL As Ordered ONE (06:29)
[2022-12-01] MEDS ORDERED: BUPIVACAINE/EPIN 0.25% 30ML VIAL As Ordered ONE (06:29)
[2022-12-01] MEDS ORDERED: fentaNYL 250 MCG/5 ML INJECTION As Ordered ONE (06:29)
[2022-12-01] MEDS ORDERED: ACETAMINOPHEN 1000MG 100ML IV BAG As Ordered ONE (06:30)
[2022-12-01] MEDS ORDERED: propofoL 200 MG/20 ML VIAL As Ordered ONE (06:30)
[2022-12-01] MEDS ORDERED: ROCURONIUM BROMIDE 50MG/5ML VIAL As Ordered ONE (06:30)
[2022-12-01] MEDS ORDERED: KETOROLAC 60MG 2ML VIAL As Ordered ONE (06:30)
[2022-12-01] MEDS ORDERED: LIDOCAINE 2% 100MG/5ML SDV (FOR ANES.) As Ordered ONE (06:30)
[2022-12-01] MEDS ORDERED: ONDANSETRON 4MG 2ML VIAL As Ordered ONE (06:30)
[2022-12-01] MEDS ORDERED: SUGAMMADEX SODIUM 500 MG/5 ML VIAL (BRIDION) As Ordered ONE (07:42)
[2022-12-01] MEDS ORDERED: fentaNYL 100 MCG/2 ML INJECTION IV PRN (08:00)
[2022-12-01] MEDS ORDERED: HYDROMORPHONE HCL 0.5 MG/ 0.5 ML SYRINGE IV PRN (08:00)
[2022-12-01] MEDS ORDERED: MEPERIDINE 25 MG/ML 1ML VIAL IV PRN (08:00)
[2022-12-01] MEDS ORDERED: LR 1,000 ML IV SCH (08:00)
[2022-12-01] MEDS ORDERED: ONDANSETRON 4MG 2ML VIAL IV PRN (08:00)
[2022-12-01] MEDS ORDERED: METOCLOPRAMIDE INJ 10MG/2ML VIAL IV PRN (08:00)
[2022-12-01] MEDS: oxyCODONE 5MG TAB PO PRN ×2 (08:21→09:07)
[2022-12-01 10:06] VITALS: BP 132/77
[2022-12-01] MEDS ORDERED: AUGM500T34 PO (10:13)
[2022-12-02] MEDS ORDERED: HYDR-3713 PO (08:51)
== END 2022-12-01 10:00 | disposition home or self-care (01) ==
LOC: M ED 03:42 → M SDC 03:43
PROVIDERS: ATTEND Surgery
DX: K35.890 Other acute appendicitis without perforation or gangrene (principal); I10 Essential (primary) hypertension; E78.5 Hyperlipidemia, unspecified; Z79.899 Other long term (current) drug therapy
CPT/HCPCS: 44970; 74176; 80048; 80076; 83605; 83690; 85025; 88304; 96361; 96365; 96375; 99285; J0131; J1100; J1170; J1885; J2250; J2405; J2543; J3010; S0020

== ENCOUNTER 2024-10-24 07:34 | Inpatient (IN) | payer SELFPAY ==
[~2024-10-24] VITALS: Ht 193 cm; Wt 102.7 kg
[~2024-10-24 07:34] MED LIST changes: +AUGM500T34 PO
[2024-10-24 08:24] LABS: HEMATOCRIT 51.7 % (42.0-52.0); MEAN CORPUSCULAR HEMOGLOBIN 29.8 pg (27.0-33.0); MEAN CORPUSCULAR HGB CONC 32.9 g/dl (32.0-36.5); MEAN CORPUSCULAR VOLUME 90.7 fl (80.0-96.0); PLATELET COUNT, AUTOMATED 248 10^3/uL (150-450); WHITE BLOOD COUNT 8.1 10^3/uL (4.0-10.0)
[2024-10-24] MEDS ORDERED: LACTATED RINGER'S 1000 ML IV ONE (08:45)
[2024-10-24 08:48] LABS: BASOPHILS 1 % (0-1); LYMPHOCYTES 4 % (16-44); MONOCYTES 6 % (0-5); NEUTROPHILS 65 % (28-66)
[2024-10-24 08:49] LABS: ANISOCYTOSIS 1+; PLATELET ESTIMATE NORMAL (NORMAL); TOXIC VACUOLATION 1+
[2024-10-24 08:53] LABS: ALBUMIN 2.7 G/DL (3.2-5.2); ALKALINE PHOSPHATASE 91 U/L (40-129); ALT/SGPT 21 U/L (7.0-40); AST/SGOT 18 U/L (<34); BILIRUBIN,DIRECT 0.2 MG/DL (<0.4); BILIRUBIN,TOTAL 0.5 MG/DL (0.3-1.2); BLOOD UREA NITROGEN 25 MG/DL (9-23); CALCIUM LEVEL 8.5 MG/DL (8.5-10.1); CARBON DIOXIDE LEVEL 29 MMOL/L (20-31); CHLORIDE LEVEL 97 MMOL/L (98-107); CREATININE FOR GFR 1.15 MG/DL (0.70-1.30); GLOMERULAR FILTRATION RATE > 60.0 (>60); GLUCOSE, FASTING 244 MG/DL (60-100); POTASSIUM SERUM 4.1 MMOL/L (3.5-5.1); SODIUM LEVEL 135 MMOL/L (136-145); TOTAL PROTEIN 6.6 G/DL (5.7-8.2)
[2024-10-24] MEDS: ACETAMINOPHEN 500 MG TAB PO ONE (09:07)
[2024-10-24] MEDS: PIPERACILLIN/TAZOBACTAM SOD 4.5 GM in DEXTROSE 5% (D5W) ADV/MINI-BAG 50 ML IV ONE (09:07)
[2024-10-24] MEDS ORDERED: ISOVUE-370 76% 100ML VIAL As Ordered ONE (09:33)
[2024-10-24] MEDS ORDERED: HOME MED LIST COMPLETE! XX SCH (10:20)
[2024-10-24] MEDS: LR 1,000 ML IV SCH ×2 (11:00→12:18)
[2024-10-24 11:25] VITALS: BP 118/78; TEMP 98.8; O2SAT 97
[2024-10-24] MEDS ORDERED: IPRATROPIUM 0.5MG/ALBUTEROL 2.5MG INH SOL UD 3ML (DUONEB) NEB PRN (11:25)
[2024-10-24] MEDS ORDERED: MIRALAX *UNIT DOSE* 17GM PACKET PO PRN (11:30)
[2024-10-24] MEDS: MORPHINE 4 MG/ML 1ML VIAL IV ONE (11:50)
[2024-10-24] MEDS: OSELTAMIVIR PHOSPHATE 75 MG CAP PO ONE (11:50)
[2024-10-24] MEDS: SIMVASTATIN 20 MG TAB PO SCH (11:50)
[2024-10-24] MEDS: NS (Normal Saline) 0.9% 1,000 ML IV SCH (15:03)
[2024-10-24] MEDS: cefTRIAXone SOD 1 GM in DEXTROSE 5% (D5W) ADV/MINI-BAG 50 ML IV ONE (15:03)
[2024-10-24] MEDS: MORPHINE 2 MG/ML 1ML VIAL IV PRN (15:03)
[2024-10-24 15:17] LABS: KETONE, URINE AUTO RFX NEGATIVE (NEGATIVE); LEUKOCYTE ESTERASE UR AUTO RFX NEGATIVE (NEGATIVE); MUCUS, URINE RFX SMALL (NEGATIVE); NITRITE, URINE AUTO RFX NEGATIVE (NEGATIVE); RBC, URINE AUTO RFX 1 /HPF (0-3); SQUAM EPITHELIAL CELL UR AURFX 0 /HPF (0-6); WBC, URINE AUTO RFX 0 /HPF (0-3)
[2024-10-24] MEDS: DOCUSATE SODIUM 100MG CAPSULE PO SCH (20:32)
[2024-10-24] MEDS: OSELTAMIVIR PHOSPHATE 75 MG CAP PO SCH (20:32)
[2024-10-24] MEDS: guaiFENesin ER TABLET 600 MG TAB PO SCH (20:32)
[2024-10-24 20:36] VITALS: BP 145/79; TEMP 97.3; O2SAT 93
[2024-10-25] VITALS (10 sets, daily range): BP systolic 116–137; BP diastolic 56–85; TEMP 96.8–99.1; O2SAT 83–96
[2024-10-25] MEDS: RAMELTEON 8 MG TAB (ROZEREM) PO ONE (00:24)
[2024-10-25 05:43] LABS: HEMATOCRIT 46.9 % (42.0-52.0); HEMOGLOBIN 15.1 g/dl (13.5-17.5); MEAN CORPUSCULAR HEMOGLOBIN 29.5 pg (27.0-33.0); MEAN CORPUSCULAR HGB CONC 32.2 g/dl (32.0-36.5); MEAN CORPUSCULAR VOLUME 91.6 fl (80.0-96.0); PLATELET COUNT, AUTOMATED 254 10^3/uL (150-450); RED BLOOD COUNT 5.12 10^6/uL (4.30-6.10); WHITE BLOOD COUNT 11.1 10^3/uL (4.0-10.0)
[2024-10-25 06:09] LABS: BLOOD UREA NITROGEN 15 MG/DL (9-23); CARBON DIOXIDE LEVEL 27 MMOL/L (20-31); CHLORIDE LEVEL 103 MMOL/L (98-107); CREATININE FOR GFR 0.73 MG/DL (0.70-1.30); GLOMERULAR FILTRATION RATE > 60.0 (>60); GLUCOSE, FASTING 255 MG/DL (60-100); POTASSIUM SERUM 4.1 MMOL/L (3.5-5.1); SODIUM LEVEL 138 MMOL/L (136-145)
[2024-10-25] MEDS: ENOXAPARIN 40MG/0.4ML SYRINGE (J1650 PER 10MG) SC SCH (09:07)
[2024-10-25] MEDS: atenoloL 50 MG TAB PO SCH (09:07)
[2024-10-25] MEDS: cefTRIAXone SOD 2 GM in DEXTROSE 5% (D5W) ADV/MINI-BAG 50 ML IV SCH (09:07)
[2024-10-25] MEDS: KETOROLAC 30 MG/ML 1ML VIAL IV PRN (09:28)
[2024-10-25] MEDS: AZITHROMYCIN INJ 500 MG, VIAL MATE ADAPTER 1 EACH in NS 250 ML IV SCH (10:01)
[2024-10-25] MEDS ORDERED: SENNA 8.6 MG TAB (SENOKOT) PO PRN (10:10)
[2024-10-25] MEDS: guaiFENesin DM LIQ 10ML UD PO PRN ×2 (12:10→16:45)
[2024-10-25] MEDS: BENZONATATE 100MG CAPSULE PO PRN (16:46)
[2024-10-25] MEDS: IPRATROPIUM 0.5MG/ALBUTEROL 2.5MG INH SOL UD 3ML (DUONEB) NEB SCH (19:11)
[2024-10-25] MEDS: ALPRAZolam 0.25 MG TAB PO SCH (20:36)
[2024-10-26] VITALS (24 sets, daily range): BP systolic 126–142; BP diastolic 64–89; TEMP 96.8–97.5; O2SAT 83–97
[2024-10-26 06:17] LABS: HEMATOCRIT 45.4 % (42.0-52.0); HEMOGLOBIN 14.9 g/dl (13.5-17.5); MEAN CORPUSCULAR HEMOGLOBIN 29.6 pg (27.0-33.0); MEAN CORPUSCULAR HGB CONC 32.8 g/dl (32.0-36.5); MEAN CORPUSCULAR VOLUME 90.3 fl (80.0-96.0); PLATELET COUNT, AUTOMATED 309 10^3/uL (150-450); RED BLOOD COUNT 5.03 10^6/uL (4.30-6.10); WHITE BLOOD COUNT 7.8 10^3/uL (4.0-10.0)
[2024-10-26 06:46] LABS: BLOOD UREA NITROGEN 11 MG/DL (9-23); CALCIUM LEVEL 8.2 MG/DL (8.5-10.1); CARBON DIOXIDE LEVEL 26 MMOL/L (20-31); CHLORIDE LEVEL 109 MMOL/L (98-107); CREATININE FOR GFR 0.65 MG/DL (0.70-1.30); GLOMERULAR FILTRATION RATE > 60.0 (>60); GLUCOSE, FASTING 125 MG/DL (60-100); SODIUM LEVEL 142 MMOL/L (136-145)
[2024-10-26 06:50] LABS: ATYPICAL LYMPH 5 % (0-5); LYMPHOCYTES 26 % (16-44); MONOCYTES 7 % (0-5); MYELOCYTES 1 % (0-0); NEUTROPHILS 56 % (28-66); PLASMA CELL 3 % (0-0)
[2024-10-26 06:52] LABS: PLATELET ESTIMATE NORMAL (NORMAL)
[2024-10-26 09:30] LABS: SOURCE PERIPHERAL SMEAR
[2024-10-26 09:47] LABS: PROCALCITONIN 0.98 ng/ml
[2024-10-27] VITALS (15 sets, daily range): BP systolic 132–151; BP diastolic 91–95; TEMP 97–97.2; O2SAT 92–96
[2024-10-27] MEDS: RAMELTEON 8 MG TAB (ROZEREM) PO ONE (00:19)
[2024-10-27] MEDS: diphenhydrAMINE 50MG/ML VIAL IV ONE (03:09)
[2024-10-27 05:51] LABS: HEMATOCRIT 45.9 % (42.0-52.0); HEMOGLOBIN 15.2 g/dl (13.5-17.5); MEAN CORPUSCULAR HEMOGLOBIN 29.6 pg (27.0-33.0); MEAN CORPUSCULAR HGB CONC 33.1 g/dl (32.0-36.5); MEAN CORPUSCULAR VOLUME 89.3 fl (80.0-96.0); PLATELET COUNT, AUTOMATED 347 10^3/uL (150-450); RED BLOOD COUNT 5.14 10^6/uL (4.30-6.10); WHITE BLOOD COUNT 9.7 10^3/uL (4.0-10.0)
[2024-10-27] MEDS: AZITHROMYCIN 250MG TABLET PO SCH (08:08)
[2024-10-27 08:47] LABS: BLOOD UREA NITROGEN 13 MG/DL (9-23); C REACTIVE PROTEIN QUANTITATIV 11.18 MG/DL (<1.0); CALCIUM LEVEL 8.3 MG/DL (8.5-10.1); CARBON DIOXIDE LEVEL 27 MMOL/L (20-31); CHLORIDE LEVEL 106 MMOL/L (98-107); CREATININE FOR GFR 0.63 MG/DL (0.70-1.30); GLOMERULAR FILTRATION RATE > 60.0 (>60); GLUCOSE, FASTING 149 MG/DL (60-100); POTASSIUM SERUM 3.8 MMOL/L (3.5-5.1); SODIUM LEVEL 142 MMOL/L (136-145)
[2024-10-27 08:54] LABS: PROCALCITONIN 0.54 ng/ml
[2024-10-27 19:08] LABS: URINE STREP PNEUMONIAE ANTIGEN NOT DETECTED (NOT DETECT)
[2024-10-28 04:49] VITALS: BP 137/80; TEMP 97.3; O2SAT 92
[2024-10-28 06:40] LABS: BASO # 0.1 10^3/uL (0.0-0.2); BASO % 0.9 % (0.0-1.0); EOS # 0.2 10^3/uL (0.0-0.5); EOS % 1.6 % (0.0-3.0); HEMATOCRIT 48.7 % (42.0-52.0); HEMOGLOBIN 16.1 g/dl (13.5-17.5); LYMPH # 2.2 10^3/uL (1.5-5.0); LYMPH % 21.9 % (24.0-44.0); MEAN CORPUSCULAR HEMOGLOBIN 29.1 pg (27.0-33.0); MEAN CORPUSCULAR HGB CONC 33.1 g/dl (32.0-36.5); MEAN CORPUSCULAR VOLUME 88.1 fl (80.0-96.0); MONO # 1.1 10^3/uL (0.0-0.8); MONO % 10.5 % (2.0-8.0); PLATELET COUNT, AUTOMATED 436 10^3/uL (150-450); RED BLOOD COUNT 5.53 10^6/uL (4.30-6.10); WHITE BLOOD COUNT 10.2 10^3/uL (4.0-10.0)
[2024-10-28 06:58] LABS: BLOOD UREA NITROGEN 14 MG/DL (9-23); CALCIUM LEVEL 8.7 MG/DL (8.5-10.1); CARBON DIOXIDE LEVEL 26 MMOL/L (20-31); CHLORIDE LEVEL 105 MMOL/L (98-107); CREATININE FOR GFR 0.64 MG/DL (0.70-1.30); GLOMERULAR FILTRATION RATE > 60.0 (>60); GLUCOSE, FASTING 136 MG/DL (60-100); POTASSIUM SERUM 4.2 MMOL/L (3.5-5.1); SODIUM LEVEL 141 MMOL/L (136-145)
[2024-10-28] MEDS: CEFDINIR 300 MG CAP (OMNICEF) PO SCH (09:00)
[2024-10-28] MEDS: LIDOCAINE 5% (LIDODERM) PATCH TD ONE (09:00)
[2024-10-28] MEDS: guaiFENesin ER TABLET 600 MG TAB PO SCH (09:00)
[2024-10-28] MEDS ORDERED: ACETAMINOPHEN 325 MG TAB PO PRN (09:40)
[2024-10-28] MEDS: ACETAMINOPHEN 325 MG TAB PO STA (10:33)
[2024-10-28] MEDS: NS (Normal Saline) 0.9% 1,000 ML IV SCH (11:21)
[2024-10-28 12:30] VITALS: BP 135/80; TEMP 97.2; O2SAT 92
[2024-10-28] MEDS ORDERED: ALBUTEROL SULFATE 2.5MG/0.5ML INH NEB SOLN NEB PRN (20:30)
[2024-10-28] MEDS ORDERED: IPRATROPIUM 0.5MG/ALBUTEROL 2.5MG INH SOL UD 3ML (DUONEB) NEB PRN (20:30)
[2024-10-28 20:40] VITALS: BP 145/98; TEMP 96.8; O2SAT 91
[2024-10-29 04:14] VITALS: BP 125/81; TEMP 97.2; O2SAT 90
[2024-10-29 05:52] LABS: BASO % 0.5 % (0.0-1.0); EOS # 0.2 10^3/uL (0.0-0.5); EOS % 2.2 % (0.0-3.0); HEMATOCRIT 45.4 % (42.0-52.0); HEMOGLOBIN 15.2 g/dl (13.5-17.5); LYMPH # 2.3 10^3/uL (1.5-5.0); LYMPH % 26.6 % (24.0-44.0); MEAN CORPUSCULAR HEMOGLOBIN 29.5 pg (27.0-33.0); MEAN CORPUSCULAR HGB CONC 33.5 g/dl (32.0-36.5); MEAN CORPUSCULAR VOLUME 88.2 fl (80.0-96.0); MONO # 0.8 10^3/uL (0.0-0.8); MONO % 8.9 % (2.0-8.0); NEUTROPHILS % 57.3 % (36.0-66.0); PLATELET COUNT, AUTOMATED 486 10^3/uL (150-450); RED BLOOD COUNT 5.15 10^6/uL (4.30-6.10); WHITE BLOOD COUNT 8.7 10^3/uL (4.0-10.0)
[2024-10-29 08:15] VITALS: BP 140/108; O2SAT 90
[2024-10-29] MEDS ORDERED: LIDOCAINE 5% (LIDODERM) PATCH TD SCH (09:00)
[2024-10-29] MEDS ORDERED: KETOROLAC 30 MG/ML 1ML VIAL IV ONE (09:15)
[2024-10-29] MEDS ORDERED: KETO10TAB PO (09:34)
[2024-10-29] MEDS ORDERED: CEFD300CAP PO (09:34)
[2024-10-29] MEDS ORDERED: OSEL75CA2 PO (09:34)
[2024-10-29] MEDS ORDERED: LIDO5TD TD (09:34)
[2024-10-29] MEDS ORDERED: GUAI10ELDM PO (09:34)
== END 2024-10-29 10:27 | disposition home or self-care (01) | DRG 720 ==
LOC: M ED 07:34 → M ED INP 09:19 → EDBEDREQ 09:31 → M MSPAV 11:24
PROVIDERS: ADMIT Internal Medicine; ATTEND Student in an Organized Health Care Education/Training Program
DX: A41.9 Sepsis, unspecified organism (principal); J10.00 Influenza due to other identified influenza virus with unspecified type of pneumonia; E87.20 Acidosis, unspecified; J13 Pneumonia due to Streptococcus pneumoniae; I10 Essential (primary) hypertension; E78.5 Hyperlipidemia, unspecified; R10.11 Right upper quadrant pain; R10.31 Right lower quadrant pain; G47.00 Insomnia, unspecified; Z79.899 Other long term (current) drug therapy; J20.8 Acute bronchitis due to other specified organisms; R09.1 Pleurisy; R65.20 Severe sepsis without septic shock